=== PATIENT | male | born 1945 | race Caucasian/White ===

== ENCOUNTER 2017-04-08 09:54 | Outpatient (CLI) | payer MEDICARE, OTHER ==
[2017-04-08 10:14] LABS: #Basophils 0.1 thou/uL (0.0-0.2); #Eosinphils 0.1 thou/uL (0.0-0.7); #Lymphocytes 1.8 thou/uL (1.20-3.40); #Monocytes 0.6 thou/uL (0.11-0.59); #Neutrophils 3.7 thou/uL (1.40-6.50); %Basophils 1.3 % (0.0-1.0); %Eosinophils 2.2 % (0.0-10.0); %Lymphocytes 28.1 % (21.0-51.0); %Monocytes 9.6 % (0.0-10.0); Hematocrit 47.2 % (42.0-52.0); Mean Platelet Volume 6.8 fL (7.4-10.4); Red Blood Cell (RBC) Count 4.99 mill/uL (4.70-6.10); White Blood Cell (WBC) Count 6.3 thou/uL (4.8-10.8)
[2017-04-08 10:35] LABS: ALT (SGPT) 26 U/L (8-55); AST (SGOT) 23 U/L (5-34); Alkaline Phosphatase 80 U/L (40-150); Anion Gap 15 mmol/L (10-20); BUN (Urea Nitrogen) 18 mg/dL (8.4-25.7); Bilirubin, Total 0.9 mg/dL (0.2-1.2); CK (CPK) 33 U/L (30-200); Calc. Creatinine Clearance 0 mL/min (70-130); Calcium 9.7 mg/dL (7.8-10.44); Carbon Dioxide 27 mmol/L (23-31); Chloride 105 mmol/L (98-107); Estimated GFR-MDRD 59; Protein, Total 7.3 g/dL (5.8-8.1)
[2017-04-08 10:36] LABS: Troponin I Less than 0.010 ng/mL (< 0.028)
--- NOTE | 2017-04-08 10:59 | RAD ---
PA AND LATERAL VIEWS OF CHEST: Date: 04/08/17 HISTORY: Chest pain and cough, dizziness. FINDINGS: Comparison made with exam of 12/03/14. There is continued elevation of the right hemidiaphragm. Changes of median sternotomy are again seen. The heart size appears enlarged, but stable. No focal areas of consolidation, pneumothorax, chris pu lmonary edema, or pleural effusions are seen. There are degenerative changes in the spine. IMPRESSION: Stable exam. No acute process. POS: [facility]
== END 2017-04-08 09:55 | disposition home or self-care (01) ==
LOC: SCSRAD 09:54
PROVIDERS: ATTEND Family Medicine
DX: R07.9 Chest pain, unspecified (principal); R10.9 Unspecified abdominal pain
CPT/HCPCS: 36415; 71020; 80053; 82150; 82550; 82553; 84484; 85025

== ENCOUNTER 2018-01-06 14:24 | Outpatient (CLI) | payer MEDICARE ==
[~2018-01-06 14:24] MED LIST: ISOVUE-370 76%-LOCM 1 ML ONE
[2018-01-06 16:54] LABS: #Basophils 0.1 thou/uL (0.0-0.2); #Eosinphils 0.1 thou/uL (0.0-0.7); #Monocytes 0.9 thou/uL (0.11-0.59); %Basophils 0.9 % (0.0-1.0); %Eosinophils 0.5 % (0.0-10.0); %Lymphocytes 18.1 % (21.0-51.0); %Monocytes 8.5 % (0.0-10.0); %Neutrophils 71.9 % (42.0-75.0); Mean Corpuscular HGB CONC 32.6 g/dL (32.0-36.0); Mean Corpuscular Hemoglobin 31.9 pg (27.0-31.0); Mean Corpuscular Volume 97.7 fL (78.0-98.0); Mean Platelet Volume 7.5 fL (7.4-10.4); Platelet Count 279 thou/uL (130-400); RBC Distribution Width 12.4 % (11.5-14.5); Red Blood Cell (RBC) Count 5.02 mill/uL (4.70-6.10); White Blood Cell (WBC) Count 11.1 thou/uL (4.8-10.8)
[2018-01-06 17:13] LABS: ALT (SGPT) 23 U/L (8-55); AST (SGOT) 20 U/L (5-34); Albumin 4.3 g/dL (3.4-4.8); Alkaline Phosphatase 79 U/L (40-150); Anion Gap 14 mmol/L (10-20); BUN (Urea Nitrogen) 24 mg/dL (8.4-25.7); Bilirubin, Total 0.5 mg/dL (0.2-1.2); Calc. Creatinine Clearance 0 mL/min (70-130); Calcium 9.8 mg/dL (7.8-10.44); Carbon Dioxide 25 mmol/L (23-31); Chloride 105 mmol/L (98-107); Estimated GFR-MDRD 56; Globulin 3.2 g/dL (2.4-3.5); Glucose 174 mg/dL (83-110); Potassium 4.1 mmol/L (3.5-5.1); Protein, Total 7.5 g/dL (5.8-8.1); Sodium 140 mmol/L (136-145)
--- NOTE | 2018-01-06 20:06 | CT ---
CT ANGIO OF CHEST AND ABDOMEN PERFORMED WITH INTRAVENOUS CONTRAST ENHANCEMENT WITH 3D RECONSTRUCTIONS : 01/06/18 HISTORY: Patient with pain radiating to back. This was done per the aortic dissection protocol. Patient was al lergic to contrast and was premedicated by the emergency protocol before this examination. There are atelectatic changes in the lung bases, more prominent within the right base. No pulmonary n odules or pleural effusions are identified. There is no significant mediastinal, hilar or axillary ad enopathy. The pulmonary arteries are relatively well opacified. No central embolus is visualized. There are pos top sternotomy changes. There is good thoracic aortic opacification. There is no evidence for dissect ion or aneurysm. CT ANGIO OF ABDOMEN PERFORMED WITH CONTRAST ENHANCEMENT WITH 3D RECONSTRUCTIONS: There is hypodensity within the liver most compatible with a cyst. The spleen and pancreas regions as well as gallbladder appear unremarkable. Right and left adrenal glands and right and left kidneys are unremarkable other than small hypodensit ies involving the kidneys most likely cysts. No significant periaortic or mesenteric adenopathy. The thoracic aorta is normal in caliber. There is no dissection. There is some moderate narrowing of the origin of the celiac artery incidentally noted. No significant stenosis of the renal arteries. Th ere is a single right renal artery and a main left renal artery and a tiny secondary left renal arter y. No free fluid or other findings. IMPRESSION: No evidence of aortic aneurysm or dissection. Other incidental findings as noted above. POS: [facility] [place]
== END 2018-01-06 14:25 | disposition home or self-care (01) ==
LOC: CT 14:24
PROVIDERS: ATTEND Family Medicine
DX: I72.9 Aneurysm of unspecified site (principal)
CPT/HCPCS: 71275; 80053; 85025

== ENCOUNTER 2018-03-08 11:58 | Day surgery (SDC) | payer MEDICARE ==
[2018-03-07 14:21] VITALS: BMI 34.2
[~2018-03-08 11:58] MED LIST changes: +Gadobenate Dimeglumine 529 MG/1 ML (20ML VIAL) ONE; -ISOVUE-370 76%-LOCM 1 ML ONE
[2018-03-08] MEDS ORDERED: Midazolam HCl 2 mg/2 ml Vial ONE (14:11)
--- NOTE | 2018-03-08 15:55 | MRI ---
CERVICAL SPINE MRI WITH AND WITHOUT CONTRAST: HISTORY: Neck pain with radiculopathy. Previous surgery. COMPARISON: None. Patient has a previous lumbar spine MRI from [facility]. TECHNIQUE: CERVICAL SPINE MRI is performed with and without intravenous Gadolinium administration. Multisequent ial, multiplanar imaging is performed. FINDINGS: There is appropriate T1 marrow signal intensity of the cervical vertebrae. Vertebral body height is maintained. There is no fracture. There is 1.9 mm of anterolisthesis of C3 upon C4. There appears to be fusion of the C6-C7 disk space. No significant STIR hyperintensity to suggest vertebral body edema, or ligamentous injury. Visualize d brain parenchyma and visualized spinal cord have an appropriate size and signal intensity. On the postcontrast images, no abnormal enhancement. In the right neck soft tissues, there is an intrinsic T1 hypointense, T2 hyperintense lesion with ass ociated enhancement. Evaluation is incomplete. The possibility of a lymph node is raised, measuring 0.8 x 1.6 cm. C2-C3: No significant disk-osteophyte complex. No significant central canal stenosis. Neural neha en are patent. C3-C4: Broad-based disk-osteophyte complex abuts the thecal sac. Ventral CSF signal intensity is we ll maintained. There is mild deformity of the ventral cord. No abnormal hyperintensity in the cord. Mild central canal stenosis. Degenerative changes in bilateral uncovertebral joints results in mod erate right and moderate to severe left foraminal narrowing. C4-C5: There is a central disk-osteophyte complex that deforms the thecal sac and deforms the cord. Moderate central canal stenosis. No T2 hyperintensity in the cord. Degenerative changes of the rig ht uncovertebral joint result in moderate right foraminal narrowing. The left neural foramen is jack nt. C5-C6: Broad-based disk-osteophyte complex abuts the thecal sac. There is deformity of the cervical cord. Moderate central canal stenosis. No cord signal abnormality. Mild bilateral foraminal narro wing. There may be subtle gliotic change involving the cervical cord. C6-C7: Broad-based osteophyte ridge without significant central canal stenosis or foraminal narrowin g. C7-T1: No significant central canal stenosis or foraminal narrowing. IMPRESSION: 1. Fusion at C6-C7. 2. There is moderate central canal stenosis at C4-C5 and C5-C6. 3. Incompletely evaluated lesion in the right aspect of the neck. Postcontrast soft tissue neck CT is recommended. POS: [facility]
== END 2018-03-08 16:40 | disposition home or self-care (01) ==
LOC: SDC/OP 11:58
PROVIDERS: ATTEND Family Medicine
DX: M54.12 Radiculopathy, cervical region (principal); M48.02 Spinal stenosis, cervical region; M25.78 Osteophyte, vertebrae; G47.30 Sleep apnea, unspecified; I25.10 Atherosclerotic heart disease of native coronary artery without angina pectoris; E11.9 Type 2 diabetes mellitus without complications; E03.9 Hypothyroidism, unspecified; I10 Essential (primary) hypertension; Z79.82 Long term (current) use of aspirin; Z79.84 Long term (current) use of oral hypoglycemic drugs; Z79.899 Other long term (current) drug therapy; Z88.2 Allergy status to sulfonamides; Z91.041 Radiographic dye allergy status; Z98.1 Arthrodesis status
CPT/HCPCS: 36415; 72156; 82565; 93005; 93010; A9579; J2250

== ENCOUNTER 2018-05-06 11:26 | Day surgery (SDC) | payer MEDICARE ==
[2018-05-05 09:59] VITALS: BMI 35.7
[2018-05-06 13:28] LABS: #Eosinphils 0.1 thou/uL (0.0-0.7); #Monocytes 0.7 thou/uL (0.11-0.59); #Neutrophils 3.3 thou/uL (1.40-6.50); %Basophils 0.4 % (0.0-1.0); %Eosinophils 1.6 % (0.0-10.0); %Lymphocytes 33.1 % (21.0-51.0); %Monocytes 10.8 % (0.0-10.0); %Neutrophils 54.1 % (42.0-75.0); Hemoglobin 14.7 g/dL (14.0-18.0); Mean Corpuscular HGB CONC 32.4 g/dL (32.0-36.0); Mean Corpuscular Hemoglobin 31.1 pg (27.0-31.0); Mean Corpuscular Volume 95.7 fL (78.0-98.0); Platelet Count 231 thou/uL (130-400); RBC Distribution Width 12.3 % (11.5-14.5); Red Blood Cell (RBC) Count 4.74 mill/uL (4.70-6.10); White Blood Cell (WBC) Count 6.1 thou/uL (4.8-10.8)
[2018-05-06 13:53] LABS: Anion Gap 14 mmol/L (10-20); BUN (Urea Nitrogen) 16 mg/dL (8.4-25.7); Calc. Creatinine Clearance 83 mL/min (70-130); Calcium 9.8 mg/dL (7.8-10.44); Carbon Dioxide 27 mmol/L (23-31); Chloride 105 mmol/L (98-107); Estimated GFR-MDRD 58; Glucose 93 mg/dL (83-110); Potassium 4.5 mmol/L (3.5-5.1); Sodium 141 mmol/L (136-145)
[2018-05-06] MEDS ORDERED: Fentanyl 100 MCG/2 ML VIAL ONE ×2 (14:16→15:28)
[2018-05-06] MEDS ORDERED: Midazolam HCl 2 mg/2 ml Vial ONE (14:16)
--- NOTE | 2018-05-06 14:47 | CT ---
CT CERVICAL SPINE WITHOUT CONTRAST: HISTORY: Cervical radiculopathy. COMPARISON: 06/05/2014 TECHNIQUE: Noncontrast cervical spine CT is performed in the axial plane. Sagittal and coronal reformatted imag es are submitted for interpretation. FINDINGS: No craniocervical dissociation. The lateral masses of C1 and C2, as well as the facets, have appropr iate articulation. Intact odontoid process. Cervical spine vertebral body height is maintained. There is no fracture. There is stable loss of d isk space height and osteophyte formation at C5-C6, C6-C7, and C7-T1. Soft tissue neck structures, upper mediastinum, and lung apices are unremarkable. There is mass effe ct upon the posterior left larynx secondary to medial deviation of the carotid artery. Limited evaluation of the contents of the central spinal canal and neural foramina due to technique. C2-C3: No high-grade central canal stenosis. There is a central/right paracentral disk bulge. The neural foramina are patent. C3-C4: There is a central disk protrusion that abuts the thecal sac. Mild central canal stenosis. The right neural foramen is mildly narrowed due to uncovertebral hypertrophy. There is severe left f oraminal narrowing due to uncovertebral hypertrophy and facet hypertrophy. C4-C5: There is a broad-based disk osteophyte complex with a central component that deforms the thec al sac and likely causes some deformity of the cervical cord. Mild central canal stenosis. Mild meir ateral foraminal narrowing due to uncovertebral hypertrophy. C5-C6: There is a broad-based disk osteophyte complex that abuts the thecal sac. There is at least mild to moderate central canal stenosis. The right neural foramen is mildly narrowed. There is mode rate left foraminal narrowing due to uncovertebral hypertrophy. C6-C7: There is a broad-based disk osteophyte complex with resultant mild central canal stenosis. T he neural foramina are patent. C7-T1: There is a broad-based disk osteophyte complex with at least mild central canal stenosis. Th e right neural foramen is mildly narrowed. The left neural foramen is patent. There is 1.7 mm of anterolisthesis of C3 upon C4. IMPRESSION: 1. Degenerative changes in the cervical spine, as detailed above. 2. No evidence of fracture. POS: [facility]
--- NOTE | 2018-05-06 14:52 | RAD ---
RADIOGRAPH CERVICAL SPINE 5 VIEWS: 05/06/2018 HISTORY: A 72-year-old male with cervicalgia and cervical radiculopathy. TECHNIQUE: Three lateral views in neutral, flexion, and extension. AP and open-mouth views. FINDINGS: Vertebral body heights are maintained. Alignment is within normal limits. No instability between fl exion and extension. The C2-C3, C3-C4, and C4-C5 disk spaces are maintained, without prominent endplate osteophytes. C5-C6: Mild disk space narrowing with endplate irregularity and prominent anterior endplate osteophy ciera protruding to the prevertebral space. C6-C7: Fusion between the vertebral bodies, across obliterated disk space. C7-T1: Obscured by the shoulders on the lateral views. Left-sided degenerative facet changes at C3-C4. No high-grade facet DJD at other levels. No prevertebral soft tissue swelling. IMPRESSION: 1. Status post successful anterior cervical diskectomy and fusion at C6-C7 with successful ankylosis of the vertebral bodies (no hardware present). 2. Moderate degenerative disk disease at C5-C6. 3. High-grade facet osteoarthrosis on the left at C3-C4. 4. No instability between flexion and extension. JN [] POS: [facility]
--- NOTE | 2018-05-06 15:15 | RAD ---
LUMBAR SPINE 5 VIEWS TO INCLUDE FLEXION AND EXTENSION VIEWS ALONG WITH NEUTRAL LATERAL AND FRONTAL SC OJECTIONS: FINDINGS: The lumbar spine vertebral body heights are maintained. There is multilevel degenerative change most pronounced at the lower lumbar spine. Neutral view does not reveal significant listhesis. With fle xion and extension positioning, there is no significant translational motion. Slight patient rotatio n on the lateral views does limit assessment of alignment. Incidental atherosclerosis noted. IMPRESSION: No significant translational motion or listhesis. Evaluation of alignment is limited obliquity on la teral views. POS: [facility]
--- NOTE | 2018-05-06 16:11 | MRI ---
MRI OF LUMBAR SPINE WITH AND WITHOUT CONTRAST: 05/06/18 HISTORY: Bilateral leg pain. COMPARISON: None. TECHNIQUE: MRI of the lumbar spine is performed with and without intravenous gadolinium administration. Multiseq uential, multiplanar imaging is performed. FINDINGS: Appropriate T1 marrow signal intensity of the lumbar vertebrae. Lumbar spine vertebral body height i s maintained. There is no fracture. No significant STIR hyperintensity to suggest vertebral body sudhir a or ligamentous injury. On the postcontrast images, there is no abnormal enhancement with regards to the vertebral bodies. There is no abnormal enhancement with regards to the cauda equina or conus med ullaris. Symmetric signal intensity of the psoas muscles. Appropriate signal intensity in the visualized solid organs. No retroperitoneal mass, lymphadenopathy or hematoma. The visualized aorta is unremarkable. The conus medullaris terminates at the mid L1 level. T12-L1: Adequate disc hydration. No significant central canal stenosis. Neural foramina patent. L1-L2: No significant loss of disc space height. No significant central canal stenosis. Neural forami na are patent. L2-L3: No significant loss of disc space height. No significant posterior disc abnormality. No signif icant central canal stenosis. Neural foramina are patent. L3-L4: Mild loss of disc space height. Generalized disc bulge, ligamentum flavum thickening and facet hypertrophy result in mild central canal stenosis. There is narrowing of both subarticular zones wit h significant obscuration of the traversing right L4 and mild obscuration of the traversing left L4 n erve root. There is bilateral facet hypertrophy and fluid in both facet joints. Mild bilateral neural foraminal narrowing. L4-L5: Moderate loss of disc space height. Left hemilaminotomy defect. There is no significant centra l canal stenosis. Mild right and moderate to severe left foraminal narrowing. Minimal enhancing scar tissue at the laminectomy defect site. There is also some enhancement involving the left subarticular zone suggesting scar tissue abutting the traversing left L5 nerve root. L5-S1: Mild loss of disc space height. There is a left laminotomy defect. There is associated enhanci ng scar tissue at the operative site. There is also scar tissue noted in the left subarticular zone, encompassing the traversing left S1 nerve root. There is a small focus of disc material in the left s ubarticular zone which abuts but does not obscure the traversing left S1 nerve root. There is additio nal epidural fibrosis adjacent to the left subarticular disc. No significant central canal stenosis. There is mild facet hypertrophy. Moderate bilateral foraminal narrowing. IMPRESSION: Left hemilaminotomy defect at L4-L5 and L5-S1. There is no high grade central canal stenosis. There i s enhancing scar tissue at the operative site. Additionally, there is enhancing scar tissue in the le ft subarticular zone at L4-5 and L5-S1. Scar tissue encompasses the respective traversing left L5 and S1 nerve roots. There is also a small focus of disc material in the left subarticular zone at L5-S1. POS: [facility]
[2018-05-06] MEDS ORDERED: PROPOFOL 200 MG/20 ML VIAL ONE (16:37)
[2018-05-06] MEDS ORDERED: Ondansetron PF 4 MG/2 ML Vial ONE (16:37)
[2018-05-06] MEDS ORDERED: Dexamethasone 20 MG/5 ML VIAL ONE (16:37)
== END 2018-05-06 16:40 | disposition home or self-care (01) ==
LOC: SDC/OP 11:26
PROVIDERS: ATTEND Surgery
DX: M50.11 Cervical disc disorder with radiculopathy, high cervical region (principal); M48.02 Spinal stenosis, cervical region; M47.22 Other spondylosis with radiculopathy, cervical region; M25.78 Osteophyte, vertebrae; M48.061 Spinal stenosis, lumbar region without neurogenic claudication; M51.26 Other intervertebral disc displacement, lumbar region; I25.2 Old myocardial infarction; E11.42 Type 2 diabetes mellitus with diabetic polyneuropathy; F40.240 Claustrophobia; Z79.82 Long term (current) use of aspirin; Z79.84 Long term (current) use of oral hypoglycemic drugs; Z79.899 Other long term (current) drug therapy; Z88.2 Allergy status to sulfonamides; Z91.041 Radiographic dye allergy status; Z95.1 Presence of aortocoronary bypass graft; Z98.1 Arthrodesis status; Z98.890 Other specified postprocedural states; Z77.098 Contact with and (suspected) exposure to other hazardous, chiefly nonmedicinal, chemicals
CPT/HCPCS: 72040; 72100; 72125; 72158; 80048; 85025; J1100; J2250; J2405; J2704; J3010

== ENCOUNTER 2018-06-01 14:56 | Outpatient (CLI) | payer MEDICARE ==
--- NOTE | 2018-06-01 15:50 | ULT ---
THYROID ULTRASOUND: HISTORY: Thyroid nodule. COMPARISON: None. TECHNIQUE: Sagittal and transverse imaging of the thyroid gland is performed. FINDINGS: The right thyroid lobe measures 4.3 x 1.7 x 2 cm. The left thyroid lobe measures 4 x 1.4 x 1.6 cm. The thyroid isthmus is 0.7 cm. In the thyroid isthmus, there is a 0.6 x 0.4 x 0.5 cm hypoechoic focus. IMPRESSION: Subcentimeter hypoechoic focus in the thyroid isthmus. POS: [facility]
== END 2018-06-01 14:57 | disposition home or self-care (01) ==
LOC: BICULT 14:56
PROVIDERS: ATTEND Otolaryngology Plastic Surgery within the Head & Neck
DX: E04.1 Nontoxic single thyroid nodule (principal)
CPT/HCPCS: 76536

== ENCOUNTER 2019-08-28 12:55 | Outpatient (CLI) | payer MEDICARE ==
--- NOTE | 2019-08-28 13:55 | ULT ---
EXAM: US Thyroid STANDARD PROVIDED CLINICAL HISTORY: Thyroid nodule. COMPARISON: 06/01/[address] cervical spine on 05/06/2018 and CTA chest on 01/06/2018 FINDINGS: The right lobe of thyroid gland measures 4.4 cm x 1.5 cm x 1.5 cm the left lobe measuring 4.1 cm x 1. 3 cm x 1.5 cm. The thyroid isthmus measures 0.4 cm in AP dimensions. Thyroid gland does appear mildly heterogeneous in appearance. There is a tiny hypoechoic nodule in th e region of the thyroid isthmus measuring 0.3 cm. There is a heterogeneous cystic and solid nodule seen in the midportion right lobe of thyroid gland. This nodule is difficult to adequately evaluate due to adjacent shadowing. This nodule did appear to be present on prior CT cervical spine on 05/06/2018 and was also probably present on CT cervical sp ine on a study in 2014 although less well delineated due to artifact on that exam. This nodule is difficult to evaluate on the prior ultrasound examination in 2019 primarily due to significant shadow ing. Image suggest this nodule is within the thyroid gland especially on prior CT exam, but this nodule is posteriorly located, and a nodule involving the parathyroid gland is not entirely excluded but thought less likely. IMPRESSION: TI RADS level 3-mildly suspicious thyroid nodule right lobe of thyroid gland. Based on size criteria, fine-needle aspiration or follow-up evaluation is not warranted. Again, this nodule was likely present on prior CT examination in 2019 as well as on a CT of the chest on 01/06/2018. This nodule did appear to be within the thyroid gland on the prior CT exam as opposed to representing a parathyroid lesion.
== END 2019-08-28 12:56 | disposition home or self-care (01) ==
LOC: BICULT 12:55
PROVIDERS: ATTEND Otolaryngology Plastic Surgery within the Head & Neck
DX: E04.1 Nontoxic single thyroid nodule (principal)
CPT/HCPCS: 76536

== ENCOUNTER 2019-09-06 12:53 | Emergency (ER) | payer MEDICARE ==
[2019-09-06] MEDS ORDERED: Rabies Vaccine Human 2.5 UNITS VIAL IM ONE (14:00)
== END 2019-09-06 14:52 | disposition home or self-care (01) ==
LOC: ER/OP 12:53
DX: Z23 Encounter for immunization (principal); E10.9 Type 1 diabetes mellitus without complications; E78.5 Hyperlipidemia, unspecified; I10 Essential (primary) hypertension; I25.2 Old myocardial infarction
CPT/HCPCS: 90375; 90376; 90471; 90675; 96372

== ENCOUNTER 2019-09-09 08:42 | Emergency (ER) | payer MEDICARE ==
[2019-09-09] MEDS ORDERED: Rabies Vaccine Human 2.5 UNITS VIAL IM ONE (09:00)
== END 2019-09-09 09:28 | disposition home or self-care (01) ==
LOC: ER/OP 08:42
DX: Z23 Encounter for immunization (principal)
CPT/HCPCS: 90471; 90675

== ENCOUNTER → 2019-09-20 | Day surgery (SDC) | payer MEDICARE ==
[~2019-09-20] MED LIST changes: -Gadobenate Dimeglumine 529 MG/1 ML (20ML VIAL) ONE; +Rabies Vaccine Human 2.5 UNITS VIAL IM ONE
== END ==
LOC: ER/OP 08:00
DX: Z29.14 Encounter for prophylactic rabies immune globulin (principal); Z88.2 Allergy status to sulfonamides; Z88.8 Allergy status to other drugs, medicaments and biological substances; Z91.041 Radiographic dye allergy status
CPT/HCPCS: 90675

== ENCOUNTER 2021-02-09 20:05 | Observation (INO) | payer MEDICARE ==
[2021-02-09 20:28] LABS: #Basophils 0.1 thou/uL (0.0-0.2); #Eosinphils 0.3 thou/uL (0.0-0.7); #Lymphocytes 2.3 thou/uL (1.20-3.40); #Monocytes 0.8 thou/uL (0.11-0.59); #Neutrophils 2.2 thou/uL (1.40-6.50); %Basophils 1.1 % (0.0-1.0); %Eosinophils 5.8 % (0.0-10.0); %Lymphocytes 39.5 % (21.0-51.0); %Monocytes 14.5 % (0.0-10.0); Hemoglobin 14.5 g/dL (14.0-18.0); Mean Corpuscular HGB CONC 33.2 g/dL (32.0-36.0); Mean Corpuscular Hemoglobin 32.4 pg (27.0-31.0); Mean Corpuscular Volume 97.7 fL (78.0-98.0); Mean Platelet Volume 6.7 fL (7.4-10.4); Platelet Count 243 thou/uL (130-400); RBC Distribution Width 13.4 % (11.5-14.5); Red Blood Cell (RBC) Count 4.47 mill/uL (4.70-6.10); White Blood Cell (WBC) Count 5.7 thou/uL (4.8-10.8)
[2021-02-09 20:49] LABS: ALT (SGPT) 32 U/L (8-55); AST (SGOT) 31 U/L (5-34); Albumin 3.8 g/dL (3.4-4.8); Alkaline Phosphatase 87 U/L (40-110); Anion Gap 15 mmol/L (10-20); BUN (Urea Nitrogen) 25 mg/dL (8.4-25.7); Bilirubin, Total 0.6 mg/dL (0.2-1.2); Calc. Creatinine Clearance 0 mL/min (70-130); Calcium 9.2 mg/dL (7.8-10.44); Carbon Dioxide 25 mmol/L (23-31); Chloride 107 mmol/L (98-107); Glucose 142 mg/dL (83-110); Lipase 68 U/L (8-78); Potassium 4.7 mmol/L (3.5-5.1); Protein, Total 6.8 g/dL (5.8-8.1); Sodium 142 mmol/L (136-145)
[2021-02-09] MEDS ORDERED: Aspirin Chewable 81 MG TAB ONE (22:59)
[2021-02-09 23:51] LABS: Troponin I Less than 0.010 ng/mL (< 0.028)
[2021-02-10] MEDS ORDERED: Acetaminophen 325 MG TAB PO PRN (00:29)
[2021-02-10] MEDS ORDERED: Ondansetron ODT 4 MG TAB PO PRN (00:29)
[2021-02-10] MEDS ORDERED: Lactated Ringer's 1,000 ML IV SCH (00:45)
[2021-02-10 03:09] LABS: Hemoglobin 13.8 g/dL (14.0-18.0); Mean Corpuscular HGB CONC 33.2 g/dL (32.0-36.0); Mean Corpuscular Volume 96.2 fL (78.0-98.0); Platelet Count 242 thou/uL (130-400); RBC Distribution Width 13.2 % (11.5-14.5); Red Blood Cell (RBC) Count 4.33 mill/uL (4.70-6.10); White Blood Cell (WBC) Count 6.5 thou/uL (4.8-10.8)
[2021-02-10 03:10] VITALS: BMI 33.9
[2021-02-10 03:23] LABS: Troponin I 0.017 ng/mL (< 0.028)
[2021-02-10 03:46] LABS: Anion Gap 12 mmol/L (10-20); BUN (Urea Nitrogen) 22 mg/dL (8.4-25.7); Calc. Creatinine Clearance 63 mL/min (70-130); Calcium 9.3 mg/dL (7.8-10.44); Carbon Dioxide 27 mmol/L (23-31); Chloride 107 mmol/L (98-107); Glucose 115 mg/dL (83-110); Potassium 4.1 mmol/L (3.5-5.1); Sodium 142 mmol/L (136-145)
[2021-02-10 03:58] LABS: Band 3 % (5-11); Eosinophils 8 % (0-10); Lymphocytes 42 % (21-51); MDiff Complete? YES; Monocytes 5 % (0-10); Neutrophil 39 % (42-75); Reactive Lymphocytes 2 % (0-10)
[2021-02-10 04:10] LABS: SARS-CoV-2 NAA Rapid Test Not Detected (NotDetected)
[2021-02-10] MEDS ORDERED: Acetaminophen 500 MG TAB PO SCH (05:30)
[2021-02-10] MEDS: Liothyronine Sodium 25 MCG TAB PO SCH (06:40)
[2021-02-10] MEDS: Levothyroxine Sodium 50 MCG TAB PO SCH (06:40)
[2021-02-10 07:15] LABS: Troponin I Less than 0.010 ng/mL (< 0.028)
[2021-02-10] MEDS: Losartan 25 MG TAB PO SCH (08:51)
[2021-02-10] MEDS: Potassium Chloride 8 MEQ TAB PO SCH (08:51)
[2021-02-10] MEDS: Alogliptin 25 MG TAB PO SCH (08:53)
[2021-02-10] MEDS ORDERED: Lidocaine 2% Viscous Solution 10 ML, Aluminum & Magnesium Hydroxide 30 ML SSW SCH (09:00)
[2021-02-10 10:35] LABS: Magnesium 1.9 mg/dL (1.6-2.6)
[2021-02-10 10:39] LABS: Phosphorus 1.8 mg/dL (2.3-4.7)
[2021-02-10] MEDS ORDERED: PHOS-NAK 1 PKT PACK PO SCH (11:00)
[2021-02-10] MEDS ORDERED: Communication Order-Pharmacy FS SCH (12:45)
[2021-02-10] MEDS ORDERED: Aspirin 81 mg Enteric Coated Tablet PO SCH ×2 (12:45→14:00)
[2021-02-10] MEDS ORDERED: Aspirin 325 mg Enteric Coated Tablet PO SCH (14:15)
[2021-02-10 14:21] LABS: Anion Gap 14 mmol/L (10-20); BUN (Urea Nitrogen) 20 mg/dL (8.4-25.7); Calc. Creatinine Clearance 71 mL/min (70-130); Calcium 9.3 mg/dL (7.8-10.44); Carbon Dioxide 25 mmol/L (23-31); Chloride 107 mmol/L (98-107); Glucose 126 mg/dL (83-110); Potassium 4.9 mmol/L (3.5-5.1); Sodium 141 mmol/L (136-145)
[2021-02-10] MEDS ORDERED: predniSONE 20 MG TAB PO SCH ×2 (18:00→23:55)
[2021-02-10] MEDS ORDERED: Famotidine 20 MG TAB PO SCH ×2 (18:00→23:55)
[2021-02-10] MEDS ORDERED: Atorvastatin Calcium 40 MG TAB PO SCH (21:00)
[2021-02-10] MEDS ORDERED: Ezetimibe 10 MG TAB PO SCH (21:00)
[2021-02-10] MEDS: Sodium Chloride 0.9% 1,000 ML IV SCH (21:31)
[2021-02-11] MEDS: Liothyronine Sodium 25 MCG TAB PO SCH (05:14)
[2021-02-11] MEDS: Losartan 25 MG TAB PO SCH (05:15)
[2021-02-11] MEDS: Levothyroxine Sodium 50 MCG TAB PO SCH (05:15)
[2021-02-11] MEDS ORDERED: Famotidine 20 MG TAB PO SCH ×4 (06:00→21:00)
[2021-02-11] MEDS ORDERED: predniSONE 20 MG TAB PO SCH ×2 (06:00→12:00)
[2021-02-11] MEDS ORDERED: Lidocaine 1% (PF) 30 ML VIAL ONE (07:46)
[2021-02-11] MEDS: Sodium Chloride 0.9% 1,000 ML IV SCH (08:10)
[2021-02-11] MEDS ORDERED: Metoprolol Tartrate 5 MG/5 ML VIAL ONE ×3 (08:41→08:56)
[2021-02-11] MEDS ORDERED: Midazolam HCl 2 mg/2 ml Vial ONE (08:41)
[2021-02-11] MEDS ORDERED: Fentanyl 100 MCG/2 ML VIAL ONE (08:41)
[2021-02-11] MEDS ORDERED: Aspirin 325 mg Enteric Coated Tablet PO SCH (09:00)
[2021-02-11] MEDS ORDERED: diphenhydrAMINE 50 MG/ML VIAL ONE (09:04)
[2021-02-11] MEDS ORDERED: Iopamidol 370 76% 100 ML VIAL ONE (09:16)
[2021-02-11] MEDS ORDERED: Sodium Chloride 0.9% 200 ML IV PRN (09:31)
[2021-02-11] MEDS ORDERED: Nitroglycerin 0.4 MG TAB (25 Tab Bottle) SL PRN (09:31)
[2021-02-11] MEDS ORDERED: Sodium Chloride 0.9% 1,000 ML IV SCH (09:33)
[2021-02-11] MEDS: Potassium Chloride 8 MEQ TAB PO SCH (10:31)
[2021-02-11] MEDS: Alogliptin 25 MG TAB PO SCH (10:31)
[2021-02-11 13:05] VITALS: TEMP 97.5
[2021-02-11 16:31] VITALS: BP 140/82
== END 2021-02-11 15:30 | disposition home or self-care (01) ==
LOC: ERS 20:05 → 2SW 02-10 00:07
PROVIDERS: ADMIT Family Medicine; ATTEND Family Medicine
PROC: 4A023N7 Measurement of Cardiac Sampling and Pressure, Left Heart, Percutaneous Approach (ICD-10-PCS; principal; 2021-02-11)
PROC: B2111ZZ Fluoroscopy of Multiple Coronary Arteries using Low Osmolar Contrast (ICD-10-PCS; 2021-02-11)
PROC: B2151ZZ Fluoroscopy of Left Heart using Low Osmolar Contrast (ICD-10-PCS; 2021-02-11)
PROC: B2131ZZ Fluoroscopy of Multiple Coronary Artery Bypass Grafts using Low Osmolar Contrast (ICD-10-PCS; 2021-02-11)
DX: R07.89 Other chest pain (principal); I25.10 Atherosclerotic heart disease of native coronary artery without angina pectoris; I25.2 Old myocardial infarction; I44.0 Atrioventricular block, first degree; E78.5 Hyperlipidemia, unspecified; I12.9 Hypertensive chronic kidney disease with stage 1 through stage 4 chronic kidney disease, or unspecified chronic kidney disease; N18.2 Chronic kidney disease, stage 2 (mild); E11.22 Type 2 diabetes mellitus with diabetic chronic kidney disease; E78.00 Pure hypercholesterolemia, unspecified; G47.33 Obstructive sleep apnea (adult) (pediatric); E66.9 Obesity, unspecified; Z68.33 Body mass index [BMI] 33.0-33.9, adult; Z20.822 Contact with and (suspected) exposure to COVID-19; Z79.82 Long term (current) use of aspirin; Z79.84 Long term (current) use of oral hypoglycemic drugs; Z95.1 Presence of aortocoronary bypass graft; Z79.899 Other long term (current) drug therapy; Z91.041 Radiographic dye allergy status; Z88.2 Allergy status to sulfonamides; Z95.5 Presence of coronary angioplasty implant and graft
CPT/HCPCS: 71045; 80048 ×2; 80053; 83690; 83735; 84100; 84443; 84484 ×4; 85025 ×2; 93005 ×2; 93459; G0378 ×3; U0002; 36415; 93010; 99152; 99153; J1200; J2001; J2250; J3010; J7050; J7120; J7512; Q9967

== ENCOUNTER 2024-05-31 09:16 | Outpatient (CLI) | payer MEDICARE | END 2024-05-31 09:17 | disposition home or self-care (01) | LOC: RAD 09:16 | PROVIDERS: ATTEND Internal Medicine Critical Care Medicine | DX: R06.00 Dyspnea, unspecified (principal); I51.7 Cardiomegaly | CPT/HCPCS: 71046 ==